=== PATIENT | female | born 1965 | race Hispanic/Latino ===

== ENCOUNTER 2023-02-04 22:59 | Inpatient (IN) | payer OTHER ==
[~2023-02-04 22:59] MED LIST: Iopamidol 370 76% 100 ML VIAL ONE
[2023-02-04] MEDS ORDERED: Morphine 4 MG/ML VIAL ONE (23:39)
[2023-02-04] MEDS ORDERED: Ketorolac Tromethamine 30 MG/ML VIAL ONE (23:39)
[2023-02-05 01:23] LABS: ALT (SGPT) 26 U/L (8-55); AST (SGOT) 15 U/L (5-34); Albumin 3.9 g/dL (3.5-5.0); Alkaline Phosphatase 72 U/L (40-110); Anion Gap 12 mmol/L (10-20); BUN (Urea Nitrogen) 8 mg/dL (9.8-20.1); Calc. Creatinine Clearance 0 mL/min (70-130); Calcium 8.8 mg/dL (7.8-10.44); Carbon Dioxide 23 mmol/L (22-29); Chloride 106 mmol/L (98-107); Estimated GFR 98; Globulin 2.8 g/dL (2.4-3.5); Glucose 242 mg/dL (70-105); Potassium 3.7 mmol/L (3.5-5.1); Protein, Total 6.7 g/dL (6.0-8.3); Sodium 137 mmol/L (136-145)
[2023-02-05] MEDS ORDERED: Calcium Carbonate 500 MG ChewTAB PO PRN (03:57)
[2023-02-05] MEDS ORDERED: Ondansetron ODT 4 MG TAB PO PRN (03:57)
[2023-02-05] MEDS ORDERED: Senokot S 8.6-50 MG TAB PO PRN (03:57)
[2023-02-05] MEDS ORDERED: Dextrose 50% Abboject 50 ML SYRINGE SLOW IVP PRN (04:01)
[2023-02-05] MEDS ORDERED: Glucagon 1 MG/ML KIT IM PRN (04:01)
[2023-02-05] MEDS ORDERED: Dextrose 5% in Water 1,000 ML IV PRN (04:01)
[2023-02-05] MEDS ORDERED: HumaLOG 300 UNITS/3 ML VIAL SC PRN (04:01)
[2023-02-05 04:56] VITALS: BMI 32.0
[2023-02-05] MEDS: HumaLOG 300 UNITS/3 ML VIAL SC PRN ×2 (06:08→12:19)
[2023-02-05 07:08] LABS: Hemoglobin A1c 7.9 % (4.0-6.0)
[2023-02-05] MEDS ORDERED: Cefepime 1 GM in Sodium Chloride 0.9% 100 ML IVPB SCH (08:00)
[2023-02-05] MEDS ORDERED: hydrALAZINE 20 MG/ML VIAL SLOW IVP PRN (08:05)
[2023-02-05] MEDS: Acetaminophen 325 MG TAB PO PRN ×2 (08:48→17:17)
[2023-02-05] MEDS: VANCOMYCIN 1.25 GM/250 ML BAG 1.25 GM in Premix Bag 1 BAG IVPB SCH ×2 (08:49→21:22)
[2023-02-05] MEDS: Famotidine 20 MG TAB PO SCH ×2 (08:49→20:08)
[2023-02-05] MEDS: Lisinopril 20 MG TAB PO SCH (08:49)
[2023-02-05] MEDS ORDERED: Vancomycin 1 GM in Premix Bag 1 BAG IVPB SCH (09:00)
[2023-02-05] MEDS ORDERED: Lorazepam 2 MG/ML VIAL SLOW IVP SCH (11:15)
[2023-02-05] MEDS ORDERED: Sodium Chloride 0.9% 1,000 ML IV SCH (11:15)
[2023-02-05] MEDS: Lactated Ringer's 1,000 ML IV SCH ×2 (14:29→21:22)
[2023-02-05 15:06] LABS: Bacteria/HPF None Seen HPF (None Seen); Bilirubin Negative (Negative); Blood, Urine 1+ (Negative); CAUTI Indications for Culture Pelvic or flank pain; Clarity Clear (Clear); Glucose, Urine (Dipstick) Greater than 1000 mg/dL (Negative); Ketone, Urine 60 mg/dL (Negative); Leukocyte Negative Leu/uL (Negative); Nitrite Negative (Negative); Protein, Urine (Dipstick) 30 mg/dL (Neg-Trace); Specific Gravity, Urine 1.026 (1.002-1.036); Squamous Epithelial 0-3 HPF (0-3); Urobilinogen Normal mg/dL (Less than 2); WBC/HPF 0-3 HPF (0-3)
[2023-02-05 15:32] LABS: Urine Culture Reflex No No
[2023-02-05 16:14] LABS: Lactic Acid 1.3 mmol/L (0.5-2.2)
[2023-02-05] MEDS: Cefepime 2 GM in Sodium Chloride 0.9% 100 ML IVPB SCH (20:08)
[2023-02-06] MEDS: Lactated Ringer's 1,000 ML IV SCH ×4 (05:37→20:23)
[2023-02-06 07:12] LABS: #Basophils 0.1 thou/uL (0.0-0.2); #Monocytes 0.8 thou/uL (0.11-0.59); #Neutrophils 9.6 thou/uL (1.40-6.50); %Basophils 0.4 % (0.0-1.0); %Eosinophils 0.1 % (0.0-10.0); %Lymphocytes 5.8 % (21.0-51.0); %Monocytes 6.8 % (0.0-10.0); %Neutrophils 86.1 % (42.0-75.0); Hemoglobin 13.5 g/dL (12.0-16.0); Mean Corpuscular HGB CONC 35.3 g/dL (32.0-36.0); Mean Corpuscular Hemoglobin 30.5 pg (27.0-31.0); Mean Corpuscular Volume 86.2 fl (78.0-98.0); Mean Platelet Volume 10.1 fL (7.4-10.4); Platelet Count 121 10x3/uL (130-400); RBC Distribution Width 12.1 % (11.5-14.5); Red Blood Cell (RBC) Count 4.43 mill/uL (4.20-5.40); White Blood Cell (WBC) Count 11.1 10x3/uL (4.8-10.8)
[2023-02-06 07:44] LABS: ALT (SGPT) 24 U/L (8-55); AST (SGOT) 26 U/L (5-34); Albumin 3.4 g/dL (3.5-5.0); Alkaline Phosphatase 80 U/L (40-110); Anion Gap 13 mmol/L (10-20); BUN (Urea Nitrogen) 8 mg/dL (9.8-20.1); Bilirubin, Total 1.3 mg/dL (0.2-1.2); Calc. Creatinine Clearance 110 mL/min (70-130); Calcium 8.7 mg/dL (7.8-10.44); Carbon Dioxide 21 mmol/L (22-29); Chloride 103 mmol/L (98-107); Estimated GFR 100; Globulin 3.1 g/dL (2.4-3.5); Glucose 175 mg/dL (70-105); Potassium 3.1 mmol/L (3.5-5.1); Protein, Total 6.5 g/dL (6.0-8.3); Sodium 134 mmol/L (136-145)
[2023-02-06] MEDS: Cefepime 2 GM in Sodium Chloride 0.9% 100 ML IVPB SCH ×2 (08:40→20:23)
[2023-02-06] MEDS: Lisinopril 20 MG TAB PO SCH (08:40)
[2023-02-06] MEDS: Famotidine 20 MG TAB PO SCH ×2 (08:40→20:23)
[2023-02-06] MEDS: Acetaminophen 325 MG TAB PO PRN ×2 (08:45→17:00)
[2023-02-06 08:56] LABS: Vancomycin, Trough 4.7 ug/mL
[2023-02-06] MEDS: VANCOMYCIN 1.25 GM/250 ML BAG 1.25 GM in Premix Bag 1 BAG IVPB SCH (09:45)
[2023-02-06] MEDS ORDERED: Potassium Chloride 20 MEQ TAB PO SCH (09:45)
[2023-02-06] MEDS: Vancomycin 1.5 GRAM/300 ML BAG 1.5 GM in Premix Bag 1 BAG IVPB SCH ×2 (11:25→17:24)
[2023-02-06] MEDS: HumaLOG 300 UNITS/3 ML VIAL SC PRN (17:25)
[2023-02-06] MEDS ORDERED: Gabapentin 300 MG CAP PO SCH (18:00)
[2023-02-06] MEDS: Gabapentin 100 MG CAP PO SCH (20:22)
[2023-02-07 06:40] LABS: Hemoglobin 12.9 g/dL (12.0-16.0); Mean Corpuscular HGB CONC 35.6 g/dL (32.0-36.0); Mean Corpuscular Hemoglobin 30.4 pg (27.0-31.0); Mean Corpuscular Volume 85.4 fl (78.0-98.0); Mean Platelet Volume 9.9 fL (7.4-10.4); Platelet Count 147 10x3/uL (130-400); RBC Distribution Width 11.9 % (11.5-14.5); Red Blood Cell (RBC) Count 4.24 mill/uL (4.20-5.40); White Blood Cell (WBC) Count 9.9 10x3/uL (4.8-10.8)
[2023-02-07 07:03] LABS: Anion Gap 14 mmol/L (10-20); BUN (Urea Nitrogen) 7 mg/dL (9.8-20.1); Calc. Creatinine Clearance 124 mL/min (70-130); Calcium 8.8 mg/dL (7.8-10.44); Carbon Dioxide 21 mmol/L (22-29); Chloride 104 mmol/L (98-107); Estimated GFR 103; Glucose 163 mg/dL (70-105); Magnesium 1.9 mg/dL (1.6-2.6); Sodium 136 mmol/L (136-145)
[2023-02-07 07:07] LABS: Delete Auto Diff?? YES; Manual Diff?? YES
[2023-02-07 07:48] LABS: Band 25 % (5-11); CellaVision Operator ID LAB.GE; Eosinophils 1 % (0-10); Lymphocytes 3 % (21-51); Monocytes 3 % (0-10); Neutrophil 65 % (42-75); Platelet Adequacy Comment Platelets Normal; Polychromasia SLIGHT = 2-3 cells HPF (0-2); Reactive Lymphocytes 1 % (0-10); Total Cell Count 100
[2023-02-07] MEDS: Famotidine 20 MG TAB PO SCH ×2 (08:26→20:03)
[2023-02-07] MEDS: Gabapentin 100 MG CAP PO SCH ×3 (08:26→20:03)
[2023-02-07] MEDS: Lisinopril 20 MG TAB PO SCH (08:26)
[2023-02-07] MEDS: Lactated Ringer's 1,000 ML IV SCH (08:27)
[2023-02-07] MEDS: Cefepime 2 GM in Sodium Chloride 0.9% 100 ML IVPB SCH (08:27)
[2023-02-07] MEDS ORDERED: Magnesium 2 GM/50 ML(in water) 2 GM in Premix Bag 1 BAG IVPB SCH (11:00)
[2023-02-07] MEDS: Potassium Chloride 20 MEQ TAB PO SCH ×2 (11:56→14:26)
[2023-02-07] MEDS ORDERED: Oxacillin 1 GM in Sodium Chloride 0.9% 100 ML IVPB SCH (12:00)
[2023-02-07] MEDS: Acetaminophen 325 MG TAB PO PRN (12:07)
[2023-02-07] MEDS ORDERED: Clotrimazole 1% Cream 15 GM TUBE TOP SCH ×2 (13:15→21:00)
[2023-02-07] MEDS ORDERED: Clotrimazole 1 % Cream 30 GM TUBE TOP SCH (13:30)
[2023-02-07] MEDS ORDERED: Cyclobenzaprine 10 MG TAB PO PRN (15:44)
[2023-02-07] MEDS: Oxacillin 2 GM in Sodium Chloride 0.9% 100 ML IVPB SCH ×2 (16:46→20:02)
[2023-02-07] MEDS: Morphine ER 15 MG TAB PO SCH (20:04)
[2023-02-07] MEDS: Clotrimazole 1 % Cream 30 GM TUBE TOP SCH (20:04)
[2023-02-08] MEDS: Oxacillin 2 GM in Sodium Chloride 0.9% 100 ML IVPB SCH ×6 (00:51→20:51)
[2023-02-08 06:51] LABS: #Basophils 0.1 thou/uL (0.0-0.2); #Eosinphils 0.2 thou/uL (0.0-0.7); #Monocytes 0.9 thou/uL (0.11-0.59); #Neutrophils 7.7 thou/uL (1.40-6.50); %Basophils 0.5 % (0.0-1.0); %Lymphocytes 8.9 % (21.0-51.0); %Monocytes 8.9 % (0.0-10.0); %Neutrophils 79.1 % (42.0-75.0); Hemoglobin 13.7 g/dL (12.0-16.0); Mean Corpuscular HGB CONC 35.6 g/dL (32.0-36.0); Mean Corpuscular Hemoglobin 30.4 pg (27.0-31.0); Mean Corpuscular Volume 85.6 fl (78.0-98.0); Mean Platelet Volume 9.9 fL (7.4-10.4); Platelet Count 175 10x3/uL (130-400); RBC Distribution Width 12.3 % (11.5-14.5); White Blood Cell (WBC) Count 9.7 10x3/uL (4.8-10.8)
[2023-02-08 07:07] LABS: Anion Gap 15 mmol/L (10-20); BUN (Urea Nitrogen) 9 mg/dL (9.8-20.1); Calc. Creatinine Clearance 127 mL/min (70-130); Calcium 8.9 mg/dL (7.8-10.44); Carbon Dioxide 22 mmol/L (22-29); Chloride 104 mmol/L (98-107); Estimated GFR 103; Glucose 166 mg/dL (70-105); Magnesium 2.1 mg/dL (1.6-2.6); Potassium 3.4 mmol/L (3.5-5.1); Sodium 138 mmol/L (136-145)
[2023-02-08] MEDS: Gabapentin 100 MG CAP PO SCH ×3 (08:01→20:51)
[2023-02-08] MEDS: Morphine ER 15 MG TAB PO SCH (08:02)
[2023-02-08] MEDS: Clotrimazole 1 % Cream 30 GM TUBE TOP SCH ×2 (08:03→20:52)
[2023-02-08] MEDS: Lisinopril 20 MG TAB PO SCH (08:03)
[2023-02-08] MEDS: Famotidine 20 MG TAB PO SCH ×2 (08:03→20:52)
[2023-02-08] MEDS ORDERED: Ketorolac Tromethamine 30 MG/ML VIAL IVP PRN (10:02)
[2023-02-08] MEDS: Ketorolac Tromethamine 30 MG/ML VIAL IVP SCH (17:54)
[2023-02-09] MEDS: Oxacillin 2 GM in Sodium Chloride 0.9% 100 ML IVPB SCH ×6 (00:18→20:58)
[2023-02-09] MEDS: Ketorolac Tromethamine 30 MG/ML VIAL IVP SCH ×4 (00:18→17:38)
[2023-02-09 07:23] LABS: #Basophils 0.1 thou/uL (0.0-0.2); #Eosinphils 0.3 thou/uL (0.0-0.7); #Monocytes 0.8 thou/uL (0.11-0.59); #Neutrophils 5.3 thou/uL (1.40-6.50); %Eosinophils 4.1 % (0.0-10.0); %Lymphocytes 15.3 % (21.0-51.0); %Monocytes 9.8 % (0.0-10.0); %Neutrophils 68.4 % (42.0-75.0); Hemoglobin 12.8 g/dL (12.0-16.0); Mean Corpuscular HGB CONC 33.4 g/dL (32.0-36.0); Mean Corpuscular Hemoglobin 30.2 pg (27.0-31.0); Mean Corpuscular Volume 90.3 fl (78.0-98.0); Mean Platelet Volume 9.7 fL (7.4-10.4); Platelet Count 171 10x3/uL (130-400); RBC Distribution Width 12.6 % (11.5-14.5); Red Blood Cell (RBC) Count 4.24 mill/uL (4.20-5.40); White Blood Cell (WBC) Count 7.8 10x3/uL (4.8-10.8)
[2023-02-09 07:50] LABS: Anion Gap 16 mmol/L (10-20); BUN (Urea Nitrogen) 14 mg/dL (9.8-20.1); Calc. Creatinine Clearance 122 mL/min (70-130); Calcium 8.9 mg/dL (7.8-10.44); Carbon Dioxide 22 mmol/L (22-29); Chloride 105 mmol/L (98-107); Estimated GFR 103; Glucose 154 mg/dL (70-105); Potassium 3.1 mmol/L (3.5-5.1); Sodium 140 mmol/L (136-145)
[2023-02-09] MEDS: Gabapentin 100 MG CAP PO SCH ×3 (07:57→20:59)
[2023-02-09] MEDS: Famotidine 20 MG TAB PO SCH ×2 (07:57→20:59)
[2023-02-09] MEDS: Lisinopril 20 MG TAB PO SCH (07:58)
[2023-02-09] MEDS: Clotrimazole 1 % Cream 30 GM TUBE TOP SCH ×2 (07:58→21:00)
[2023-02-09] MEDS: Potassium Chloride 20 MEQ in Premix Bag 1 BAG IVPB SCH ×2 (12:11→13:16)
[2023-02-09] MEDS: Carvedilol 6.25 MG TAB PO SCH (16:51)
[2023-02-10] MEDS: Ketorolac Tromethamine 30 MG/ML VIAL IVP SCH ×3 (00:15→12:32)
[2023-02-10] MEDS: Oxacillin 2 GM in Sodium Chloride 0.9% 100 ML IVPB SCH ×4 (00:16→13:09)
[2023-02-10 06:44] LABS: #Basophils 0.1 thou/uL (0.0-0.2); #Eosinphils 0.3 thou/uL (0.0-0.7); #Monocytes 0.6 thou/uL (0.11-0.59); #Neutrophils 4.5 thou/uL (1.40-6.50); %Basophils 0.8 % (0.0-1.0); %Eosinophils 4.8 % (0.0-10.0); %Lymphocytes 18.2 % (21.0-51.0); %Neutrophils 63.4 % (42.0-75.0); Hemoglobin 11.6 g/dL (12.0-16.0); Mean Corpuscular HGB CONC 34.5 g/dL (32.0-36.0); Mean Corpuscular Hemoglobin 30.4 pg (27.0-31.0); Mean Corpuscular Volume 88.2 fl (78.0-98.0); Mean Platelet Volume 9.3 fL (7.4-10.4); Platelet Count 198 10x3/uL (130-400); RBC Distribution Width 12.2 % (11.5-14.5); Red Blood Cell (RBC) Count 3.81 mill/uL (4.20-5.40); White Blood Cell (WBC) Count 7.1 10x3/uL (4.8-10.8)
[2023-02-10 07:08] LABS: Anion Gap 15 mmol/L (10-20); BUN (Urea Nitrogen) 11 mg/dL (9.8-20.1); Calc. Creatinine Clearance 136 mL/min (70-130); Calcium 8.6 mg/dL (7.8-10.44); Carbon Dioxide 24 mmol/L (22-29); Chloride 106 mmol/L (98-107); Estimated GFR 105; Glucose 165 mg/dL (70-105); Potassium 3.2 mmol/L (3.5-5.1); Sodium 142 mmol/L (136-145)
[2023-02-10 07:19] VITALS: BP 159/80; TEMP 98.1
[2023-02-10] MEDS: Lisinopril 20 MG TAB PO SCH (08:00)
[2023-02-10] MEDS: Gabapentin 100 MG CAP PO SCH ×2 (08:00→14:32)
[2023-02-10] MEDS: Famotidine 20 MG TAB PO SCH (08:01)
[2023-02-10] MEDS: Carvedilol 6.25 MG TAB PO SCH (08:01)
[2023-02-10] MEDS: Clotrimazole 1 % Cream 30 GM TUBE TOP SCH (08:02)
== END 2023-02-10 14:52 | disposition home or self-care (01) | DRG 872 ==
LOC: ERS 22:59 → T4-A 02-05 02:57
PROVIDERS: ADMIT Student in an Organized Health Care Education/Training Program; ATTEND Hospitalist
DX: A41.01 Sepsis due to Methicillin susceptible Staphylococcus aureus (principal); N13.30 Unspecified hydronephrosis; E87.20 Acidosis, unspecified; M25.552 Pain in left hip; K80.20 Calculus of gallbladder without cholecystitis without obstruction; K83.8 Other specified diseases of biliary tract; I10 Essential (primary) hypertension; E11.9 Type 2 diabetes mellitus without complications; Z98.51 Tubal ligation status; Z83.3 Family history of diabetes mellitus; Z79.4 Long term (current) use of insulin
CPT/HCPCS: 36415; 36416; 72148; 74177; 76705; 78227; 80048; 80053; 80202; 81001; 83036; 83605; 83735; 85025; 85652; 86140; 87040; 87086; 93306; 96361; 96374; 96375; A9537; J0360; J0692; J1815; J1885; J2270; J2700; J3370; J3475; J3480; J3490; J7050; J7120; Q9967